=== PATIENT | male | born 1960 | race American Indian/Alaskan Native ===

== ENCOUNTER 2019-02-03 08:56 | Outpatient (CLI) | payer BC ==
[2019-02-03 10:48] LABS: Chol/HDL Ratio 2.65 %
== END 2019-02-03 08:57 | disposition home or self-care (01) ==
LOC: LAB 08:56
PROVIDERS: ATTEND Internal Medicine
DX: E78.5 Hyperlipidemia, unspecified (principal); R73.03 Prediabetes; I10 Essential (primary) hypertension
CPT/HCPCS: 36415; 80061; 83036

== ENCOUNTER 2019-06-09 08:51 | Outpatient (CLI) | payer BC ==
[2019-06-09 12:47] LABS: Chol/HDL Ratio 2.49 %
== END 2019-06-09 08:52 | disposition home or self-care (01) ==
LOC: LAB 08:51
PROVIDERS: ATTEND Internal Medicine
DX: E78.5 Hyperlipidemia, unspecified (principal); R73.03 Prediabetes
CPT/HCPCS: 36415; 80061; 83036

== ENCOUNTER 2021-03-07 11:11 | Outpatient (CLI) | payer BC ==
--- NOTE | 2021-03-07 13:46 | XRay Report ---
CHEST 2 VIEWS INDICATION: DORSALGIA,UNSPECIFIED. COMPARISON: None FINDINGS: SUPPORT DEVICES: None. HEART: Within normal limits. LUNGS/PLEURA: No acute air space or interstitial disease. No pneumothorax. ADDITIONAL FINDINGS: None. IMPRESSION: 1. No acute findings. Signer Name: Abhijeet Keen MD Signed: 03/07/2021 1:42 PM Workstation Name: [id number]
== END 2021-03-07 11:12 | disposition home or self-care (01) ==
LOC: XRAY 11:11
PROVIDERS: ATTEND Internal Medicine
DX: M54.9 Dorsalgia, unspecified (principal)
CPT/HCPCS: 71046